=== PATIENT | male | born 1965 | race Caucasian/White ===

== ENCOUNTER → 2017-05-15 | Outpatient (CLI) | payer OTHER ==
[~2017-05-15] MED LIST: CHOL200022 PO; DEXL60CA6 PO; vitamin b12 IJ
--- NOTE | 2017-05-15 16:21 | RADIOLOGY IMAGING REPORT ---
FACILITY: [facility] PATIENT NAME: Kristie Palma : 1965 MR: [id number] V: [id number] EXAM DATE: ORDERING PHYSICIAN: TAWNY MEI TECHNOLOGIST: Location: [facility] Patient: Kristie Palma : 1965 Visit/Account:[id number] Date of Sevice: 05/15/2017 ABDOMEN/PELVIS W/O CONTRAST HISTORY: Left-sided flank pain x1 day TECHNIQUE: Axial images acquired through the abdomen/pelvis. Coronal and sagittal reformatting also performed. No IV contrast administered. One of the following dose optimization techniques was utili zed in the performance of this exam: Automated exposure control; adjustment of the mA and/or kV accor ding to the patient's size; or use of an iterative reconstruction technique. Specific details can b e referenced in the facility's radiology CT exam operational policy. COMPARISON: None. FINDINGS: Visualized lung bases: Negative. Hepatobiliary: There are several hepatic cysts, largest measuring 1.5 cm diameter. Liver otherwise n ormal. Gallbladder unremarkable. Spleen: Negative. Adrenals: Negative. Pancreas: Negative. Kidneys ureters and bladder: No stones are identified in the kidneys. There is no evidence of inflamm ation but there is very mild left-sided ureterectasis which terminates in a 2 mm stone lodged approxi mately 1 cm from the left ureterovesical junction. This is visualized axial image 124 series 2 and co arabella image 59. Urinary bladder normal. Genitalia: Negative. GI: Several diverticula seen in the rectosigmoid colon. Vessels/spaces/nodes: Negative. Bones/soft tissues: Disc space narrowing L4-5 and L5-S1. Osseous structures otherwise unremarkable. Additional findings: None pertinent. IMPRESSION: 2 mm distal left ureteral stone causing very mild left renal collecting system obstruction. Pertinent negative-no additional kidney stones seen. Minimal rectosigmoid diverticulosis. Degenerative disc disease lower lumbar spine. Report Dictated By: Avni Boles MD at 05/15/2017 4:12 PM Report E-Signed By: Avni Boles MD at 05/15/2017 4:17 PM WSN:[id number]
== END ==
LOC: CT 15:09
PROVIDERS: ATTEND Physician Assistant
DX: K76.89 Other specified diseases of liver (principal); N13.4 Hydroureter; K57.30 Diverticulosis of large intestine without perforation or abscess without bleeding; M51.36 Other intervertebral disc degeneration, lumbar region
CPT/HCPCS: 74176

== ENCOUNTER 2017-06-07 01:36 | Day surgery (SDC) | payer OTHER ==
[~2017-06-07] VITALS: Ht 190.5 cm; Wt 96.6 kg
[~2017-06-07 01:36] MED LIST changes: +CYAN25004 PO
[2017-06-07] MEDS ORDERED: PROPOFOL EMUL(*) 10MG/ML 20 ML 40 ML ONE (07:27)
[2017-06-07] MEDS ORDERED: LIDOCAINE/SOD BICARB 8.4% SYR ID ONE (11:00)
[2017-06-07] MEDS ORDERED: MIDAZOLAM 2 MG/2 ML VIAL IVP PRN (11:00)
[2017-06-07] MEDS ORDERED: NORMOSOL R SOLN(*) 1000 ML BAG 1,000 ML IV PRN (11:00)
[2017-06-07 14:12] VITALS: BP 125/88
[2017-06-07] MEDS ORDERED: PROPOFOL EMUL(*) 10MG/ML 20 ML 20 ML ONE (16:01)
[2017-06-07 16:18] VITALS: BP 94/61
[2017-06-07 16:32] VITALS: BP 104/76
[2017-06-07 16:55] VITALS: BP 125/80
[2017-06-07 16:59] VITALS: BP 119/83
[2017-06-07 17:01] VITALS: BP 123/90
== END 2017-06-07 17:17 | disposition home or self-care (01) ==
LOC: OR 01:36
PROVIDERS: ATTEND Internal Medicine Gastroenterology
DX: Z12.11 Encounter for screening for malignant neoplasm of colon (principal); K64.8 Other hemorrhoids; K57.30 Diverticulosis of large intestine without perforation or abscess without bleeding; K20.9 Esophagitis, unspecified; K44.9 Diaphragmatic hernia without obstruction or gangrene; K29.70 Gastritis, unspecified, without bleeding
CPT/HCPCS: 00811; 43239; 45380; 88305; 88313; 88344; J2704